=== PATIENT | male | born 1995 | race Hispanic/Latino ===

== ENCOUNTER 2018-01-21 00:44 | Emergency (ER) | payer BC ==
[2018-01-21 00:50] VITALS: RESP 18
[2018-01-21] MEDS ORDERED: Bacitracin 500 Units/gm Oint Foilpak UD ONE (02:00)
[2018-01-21] MEDS ORDERED: Tetanus/Diphtheria Toxoids 0.5 ml Syringe IM ONE (02:05)
[2018-01-21] MEDS ORDERED: Tdap Vaccine 0.5 ml Vial (10-64 yrs) IM ONE (02:07)
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
[2018-01-21 03:43] VITALS: BP 119/75; PULSE 80; TEMP 97.8
[2018-01-21 05:15] VITALS: O2SAT 98
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
== END 2018-01-21 03:44 | disposition home or self-care (01) ==
LOC: C.ER 00:44
DX: S01.01XA Laceration without foreign body of scalp, initial encounter (principal); S80.212A Abrasion, left knee, initial encounter; S80.211A Abrasion, right knee, initial encounter; Y08.89XA Assault by other specified means, initial encounter